=== PATIENT | female | born 1935 | race Caucasian/White ===

== ENCOUNTER 2017-04-07 17:55 | Inpatient (IN) | payer MEDICARE, OTHER, MEDICAID ==
[2017-04-07] MEDS: ONDANSETRON 4 MG INJ IV (18:29)
[2017-04-07] MEDS: morphine 4 MG/ML VIAL IV (18:29)
[2017-04-07] MEDS: SOD CHLORIDE 0.9% 1,000 ML IV ×3 (18:29→20:04)
[2017-04-07 18:58] LABS: ADD MAN DIFF? NO
[2017-04-07 18:59] LABS: BASOPHILS % 0.2 % (0.0-2.0); EOSINOPHILS # 0.1 10^3/ul (0.0-0.5); EOSINOPHILS % 0.5 % (0.0-7.0); HEMATOCRIT 37.8 % (37.0-47.0); HEMOGLOBIN 12.3 g/dl (12.0-16.0); LYMPHOCYTES % 7.7 % (15.0-51.0); MEAN CORPUSCULAR HEMOGLOBIN 29.5 pg (29.0-33.0); MEAN CORPUSCULAR HGB CONC 32.5 g/dl (32.0-37.0); MEAN CORPUSCULAR VOLUME 90.6 fl (82.0-101.0); MEAN PLATELET VOLUME 9.6 fl (7.4-10.4); MONOCYTE # 0.9 10^3/ul (0.3-0.9); MONOCYTES % 6.6 % (0.0-11.0); NEUTROPHIL # 11.5 10^3/ul (1.6-7.5); NEUTROPHILS % 84.7 % (39.0-77.0); PLATELET COUNT 248 10^3/UL (140-415); RED BLOOD COUNT 4.17 10^6/ul (4.20-5.40); RED CELL DISTRIBUTION WIDTH 12.4 % (11.5-14.5)
[2017-04-07 18:59] LABS: WHITE BLOOD COUNT 13.6 10^3/ul (4.8-10.8)
[2017-04-07 19:17] LABS: ALANINE AMINOTRANSFERASE 51 IU/L (13-69); ALBUMIN/GLOBULIN RATIO 1.37; ALKALINE PHOSPHATASE 97 IU/L (42-121); ANION GAP 17 (8-16); ASPARTATE AMINO TRANSFERASE 94 IU/L (15-46); BILIRUBIN,INDIRECT 1.1 mg/dl (0-1.1); BILIRUBIN,TOTAL 1.1 mg/dl (0.2-1.3); BLOOD UREA NITROGEN 37 mg/dl (7-20); CALCIUM 9.9 mg/dl (8.4-10.2); CARBON DIOXIDE 26 mmol/L (21-31); CHLORIDE 100 mmol/L (97-110); CREATININE 1.14 mg/dl (0.44-1.00); GLUCOSE 109 mg/dl (70-220); LIPASE 35 U/L (23-300); POTASSIUM 4.2 mmol/L (3.5-5.1); SODIUM 139 mmol/L (135-144); TOTAL PROTEIN 6.9 g/dl (6.1-8.1)
[2017-04-07 19:28] LABS: TROPONIN-I 0.053 ng/ml (0.00-0.12)
[2017-04-07 19:33] LABS: CREATINE KINASE 2350 IU/L (23-200)
[2017-04-07] MEDS: morphine 10 MG INJ IV (20:30)
[2017-04-07 20:50] LABS: URINE PH (Dip) POC 5.5 (5.0-8.5)
[2017-04-07 20:50] LABS: URINE BLOOD (Dip) POC Trace-lysed (NEGATIVE); URINE GLUCOSE (Dip) POC Negative (NEGATIVE); URINE KETONES (Dip) POC 2+ (NEGATIVE); URINE LEUKOCYTE EST (Dip) POC Negative (NEGATIVE); URINE NITRITE (Dip) POC Negative (NEGATIVE); URINE TOTAL PROTEIN POC Negative (NEGATIVE)
[2017-04-07 21:11] LABS: ADD UMIC NO; UR ASCORBIC ACID NEGATIVE (NEGATIVE); UR BILIRUBIN (Dip) NEGATIVE (NEGATIVE); UR BLOOD (Dip) NEGATIVE (NEGATIVE); UR CLARITY CLEAR (CLEAR); UR COLOR YELLOW (YELLOW); UR GLUCOSE (Dip) NEGATIVE (NEGATIVE); UR KETONES (Dip) 2+ mg/dL (NEGATIVE); UR LEUKOCYTE ESTERASE (Dip) NEGATIVE Leu/ul (NEGATIVE); UR NITRITE (Dip) NEGATIVE (NEGATIVE); UR SPECIFIC GRAVITY (Dip) 1.024 (1.003-1.030); UR TOTAL PROTEIN (Dip) NEGATIVE (NEGATIVE); UR UROBILINOGEN (Dip) NEGATIVE (NEGATIVE)
[2017-04-07] MEDS ORDERED: ACETAMINOPHEN 325 MG TAB PO (21:30)
[2017-04-07] MEDS ORDERED: ONDANSETRON 4 MG INJ IV (21:30)
[2017-04-07] MEDS: MAGNESIUM OXIDE 400 MG TAB PO (23:08)
[2017-04-08] MEDS ORDERED: NACL 0.9% 3 ML SYG IV (06:30)
[2017-04-08] MEDS ORDERED: morphine 2 MG INJ IV (06:30)
[2017-04-08] MEDS: PANTOPRAZOLE (EC) 40 MG TAB PO (07:01)
[2017-04-08] MEDS: SOD CHLORIDE 0.9% 1,000 ML IV ×3 (07:02→21:42)
[2017-04-08 07:42] LABS: ADD MAN DIFF? NO
[2017-04-08 08:00] LABS: BASOPHILS % 0.3 % (0.0-2.0); EOSINOPHILS # 0.2 10^3/ul (0.0-0.5); EOSINOPHILS % 1.6 % (0.0-7.0); HEMOGLOBIN 10.5 g/dl (12.0-16.0); LYMPHOCYTES # 1.3 10^3/ul (0.8-2.9); LYMPHOCYTES % 12.2 % (15.0-51.0); MEAN CORPUSCULAR HEMOGLOBIN 29.7 pg (29.0-33.0); MEAN CORPUSCULAR HGB CONC 31.8 g/dl (32.0-37.0); MEAN CORPUSCULAR VOLUME 93.2 fl (82.0-101.0); MEAN PLATELET VOLUME 9.6 fl (7.4-10.4); NEUTROPHIL # 7.8 10^3/ul (1.6-7.5); NEUTROPHILS % 75.5 % (39.0-77.0); PLATELET COUNT 195 10^3/UL (140-415); RED BLOOD COUNT 3.54 10^6/ul (4.20-5.40); RED CELL DISTRIBUTION WIDTH 12.6 % (11.5-14.5)
[2017-04-08 08:00] LABS: WHITE BLOOD COUNT 10.3 10^3/ul (4.8-10.8)
[2017-04-08 08:13] LABS: ALANINE AMINOTRANSFERASE 45 IU/L (13-69); ALBUMIN/GLOBULIN RATIO 1.11; ALKALINE PHOSPHATASE 60 IU/L (42-121); ANION GAP 13 (8-16); ASPARTATE AMINO TRANSFERASE 89 IU/L (15-46); BILIRUBIN,INDIRECT 0.9 mg/dl (0-1.1); BILIRUBIN,TOTAL 0.9 mg/dl (0.2-1.3); BLOOD UREA NITROGEN 29 mg/dl (7-20); CARBON DIOXIDE 23 mmol/L (21-31); CHLORIDE 109 mmol/L (97-110); GLUCOSE 93 mg/dl (70-220); MAGNESIUM 1.9 mg/dl (1.7-2.5); PHOSPHORUS 2.7 mg/dl (2.5-4.9); POTASSIUM 4.4 mmol/L (3.5-5.1); SODIUM 141 mmol/L (135-144); TOTAL PROTEIN 5.7 g/dl (6.1-8.1)
[2017-04-08 08:21] LABS: CREATINE KINASE 2213 IU/L (23-200)
[2017-04-08 08:24] LABS: TROPONIN-I 0.089 ng/ml (0.00-0.12)
[2017-04-08] MEDS: BUPROPION (XL) 150 MG TAB PO (08:34)
[2017-04-08] MEDS: LOSARTAN 50 MG TAB PO (08:35)
[2017-04-08] MEDS: FOLIC ACID 1 MG TAB PO (08:35)
[2017-04-08] MEDS: PAROXETINE 20 MG TAB PO (08:35)
[2017-04-08] MEDS: METOPROLOL 50 MG TAB PO (08:35)
[2017-04-08] MEDS: HYDROCODONE/APAP (5/325) TAB PO (08:36)
[2017-04-08 08:52] LABS: HEMOGLOBIN A1C 5.6 % (0-5.9)
[2017-04-08] MEDS: DULOXETINE 30 MG CAP DR PO (11:19)
[2017-04-08 12:29] LABS: TROPONIN-I 0.077 ng/ml (0.00-0.12)
[2017-04-08] MEDS ORDERED: EZETIMIBE 10 MG TAB PO (21:00)
[2017-04-08] MEDS ORDERED: ATORVASTATIN 80 MG TAB PO (21:00)
[2017-04-08] MEDS: AMITRIPTYLINE 10 MG TAB PO (21:37)
[2017-04-09] MEDS: hydrALAzine 20 MG INJ IV (03:18)
[2017-04-09] MEDS: HYDROCODONE/APAP (5/325) TAB PO ×3 (04:43→20:29)
[2017-04-09 05:24] LABS: ADD MAN DIFF? NO
[2017-04-09 05:28] LABS: BASOPHILS % 0.4 % (0.0-2.0); EOSINOPHILS # 0.3 10^3/ul (0.0-0.5); EOSINOPHILS % 2.8 % (0.0-7.0); HEMATOCRIT 34.6 % (37.0-47.0); HEMOGLOBIN 11.2 g/dl (12.0-16.0); LYMPHOCYTES # 1.8 10^3/ul (0.8-2.9); LYMPHOCYTES % 19.7 % (15.0-51.0); MEAN CORPUSCULAR HEMOGLOBIN 29.9 pg (29.0-33.0); MEAN CORPUSCULAR HGB CONC 32.4 g/dl (32.0-37.0); MEAN CORPUSCULAR VOLUME 92.3 fl (82.0-101.0); MEAN PLATELET VOLUME 9.6 fl (7.4-10.4); MONOCYTE # 0.8 10^3/ul (0.3-0.9); MONOCYTES % 8.7 % (0.0-11.0); NEUTROPHIL # 6.4 10^3/ul (1.6-7.5); PLATELET COUNT 193 10^3/UL (140-415); RED BLOOD COUNT 3.75 10^6/ul (4.20-5.40); RED CELL DISTRIBUTION WIDTH 12.7 % (11.5-14.5)
[2017-04-09 05:28] LABS: WHITE BLOOD COUNT 9.4 10^3/ul (4.8-10.8)
[2017-04-09 05:52] LABS: ANION GAP 11 (8-16); BLOOD UREA NITROGEN 20 mg/dl (7-20); CALCIUM 9.4 mg/dl (8.4-10.2); CARBON DIOXIDE 25 mmol/L (21-31); CHLORIDE 110 mmol/L (97-110); CREATININE 0.83 mg/dl (0.44-1.00); GLUCOSE 101 mg/dl (70-220); MAGNESIUM 1.7 mg/dl (1.7-2.5); PHOSPHORUS 1.8 mg/dl (2.5-4.9); SODIUM 142 mmol/L (135-144)
[2017-04-09 06:11] LABS: CREATINE KINASE 2402 IU/L (23-200)
[2017-04-09] MEDS: SOD CHLORIDE 0.9% 1,000 ML IV ×4 (06:20→18:18)
[2017-04-09] MEDS: PANTOPRAZOLE (EC) 40 MG TAB PO ×2 (07:20→09:45)
[2017-04-09] MEDS: METOPROLOL 50 MG TAB PO (09:42)
[2017-04-09] MEDS: FOLIC ACID 1 MG TAB PO (09:42)
[2017-04-09] MEDS: BUPROPION (XL) 150 MG TAB PO (09:42)
[2017-04-09] MEDS: DULOXETINE 30 MG CAP DR PO (09:42)
[2017-04-09] MEDS: LOSARTAN 50 MG TAB PO (09:43)
[2017-04-09] MEDS: ACETAMINOPHEN 325 MG TAB PO (09:43)
[2017-04-09 12:50] LABS: C-REACTIVE PROTEIN 2.9 mg/dl (0.0-0.9)
[2017-04-09 15:48] LABS: RHEUMATOID FACTOR NEGATIVE (NEGATIVE)
[2017-04-09] MEDS: SALMETEROL/FLUTICASONE 250/50 INHA INH ×2 (16:00→20:27)
[2017-04-09] MEDS: AMITRIPTYLINE 10 MG TAB PO (20:27)
[2017-04-09] MEDS: MONTELUKAST 10 MG TAB PO (20:29)
[2017-04-10] MEDS: SOD CHLORIDE 0.9% 1,000 ML IV ×3 (02:26→20:40)
[2017-04-10] MEDS: HYDROCODONE/APAP (5/325) TAB PO ×3 (05:08→20:37)
[2017-04-10] MEDS: PANTOPRAZOLE (EC) 40 MG TAB PO (05:08)
[2017-04-10 06:39] LABS: CREATINE KINASE 1162 IU/L (23-200)
[2017-04-10 06:42] LABS: ALANINE AMINOTRANSFERASE 47 IU/L (13-69); ALBUMIN 2.7 g/dl (3.3-4.9); ALBUMIN/GLOBULIN RATIO 1.35; ALKALINE PHOSPHATASE 52 IU/L (42-121); ANION GAP 8 (8-16); ASPARTATE AMINO TRANSFERASE 59 IU/L (15-46); BILIRUBIN,INDIRECT 0.4 mg/dl (0-1.1); BILIRUBIN,TOTAL 0.4 mg/dl (0.2-1.3); BLOOD UREA NITROGEN 19 mg/dl (7-20); CALCIUM 8.7 mg/dl (8.4-10.2); CARBON DIOXIDE 26 mmol/L (21-31); CHLORIDE 109 mmol/L (97-110); CREATININE 0.81 mg/dl (0.44-1.00); GLUCOSE 91 mg/dl (70-220); POTASSIUM 3.9 mmol/L (3.5-5.1); SODIUM 139 mmol/L (135-144); TOTAL PROTEIN 4.7 g/dl (6.1-8.1)
[2017-04-10] MEDS: FOLIC ACID 1 MG TAB PO (09:33)
[2017-04-10] MEDS: SALMETEROL/FLUTICASONE 250/50 INHA INH ×2 (09:33→20:36)
[2017-04-10] MEDS: DULOXETINE 30 MG CAP DR PO (09:33)
[2017-04-10] MEDS: LOSARTAN 50 MG TAB PO (09:34)
[2017-04-10] MEDS: BUPROPION (XL) 150 MG TAB PO (09:34)
[2017-04-10] MEDS: METOPROLOL 25 MG TAB PO ×3 (09:38→20:38)
[2017-04-10 12:27] LABS: HEPATITIS C VIRAL ANTIBODY NEGATIVE (NEGATIVE)
[2017-04-10] MEDS: hydrALAzine 20 MG INJ IV ×2 (13:39→22:17)
[2017-04-10] MEDS: ACETAMINOPHEN 325 MG TAB PO ×2 (16:43→23:57)
[2017-04-10] MEDS: MONTELUKAST 10 MG TAB PO (20:36)
[2017-04-10 21:54] LABS: RAPID PLASMA REAGIN NONREACTIVE (NR)
[2017-04-10] MEDS: ONDANSETRON 4 MG INJ IV (23:57)
[2017-04-11] MEDS: SOD CHLORIDE 0.9% 1,000 ML IV ×3 (01:00→17:01)
[2017-04-11] MEDS: HYDROCODONE/APAP (5/325) TAB PO ×2 (04:44→17:00)
[2017-04-11] MEDS: PANTOPRAZOLE (EC) 40 MG TAB PO (04:44)
[2017-04-11] MEDS: hydrALAzine 20 MG INJ IV (04:48)
[2017-04-11 05:04] LABS: ADD MAN DIFF? NO
[2017-04-11 05:14] LABS: BASOPHILS % 0.1 % (0.0-2.0); EOSINOPHILS # 0.1 10^3/ul (0.0-0.5); EOSINOPHILS % 0.8 % (0.0-7.0); HEMATOCRIT 32.3 % (37.0-47.0); HEMOGLOBIN 10.6 g/dl (12.0-16.0); LYMPHOCYTES # 0.6 10^3/ul (0.8-2.9); MEAN CORPUSCULAR HEMOGLOBIN 29.9 pg (29.0-33.0); MEAN CORPUSCULAR HGB CONC 32.8 g/dl (32.0-37.0); MEAN PLATELET VOLUME 9.6 fl (7.4-10.4); MONOCYTE # 0.4 10^3/ul (0.3-0.9); MONOCYTES % 5.2 % (0.0-11.0); NEUTROPHIL # 6.4 10^3/ul (1.6-7.5); NEUTROPHILS % 85.4 % (39.0-77.0); PLATELET COUNT 194 10^3/UL (140-415); RED BLOOD COUNT 3.55 10^6/ul (4.20-5.40); RED CELL DISTRIBUTION WIDTH 12.6 % (11.5-14.5)
[2017-04-11 05:14] LABS: WHITE BLOOD COUNT 7.5 10^3/ul (4.8-10.8)
[2017-04-11 05:49] LABS: CREATINE KINASE 795 IU/L (23-200)
[2017-04-11 05:49] LABS: PHOSPHORUS 3.3 mg/dl (2.5-4.9)
[2017-04-11 05:54] LABS: ALANINE AMINOTRANSFERASE 50 IU/L (13-69); ALBUMIN 3.2 g/dl (3.3-4.9); ALBUMIN/GLOBULIN RATIO 1.18; ALKALINE PHOSPHATASE 65 IU/L (42-121); ANION GAP 12 (8-16); ASPARTATE AMINO TRANSFERASE 56 IU/L (15-46); BILIRUBIN,INDIRECT 0.5 mg/dl (0-1.1); BILIRUBIN,TOTAL 0.5 mg/dl (0.2-1.3); BLOOD UREA NITROGEN 13 mg/dl (7-20); CALCIUM 9.4 mg/dl (8.4-10.2); CARBON DIOXIDE 28 mmol/L (21-31); CHLORIDE 103 mmol/L (97-110); CREATININE 0.79 mg/dl (0.44-1.00); GLUCOSE 116 mg/dl (70-220); POTASSIUM 4.1 mmol/L (3.5-5.1); SODIUM 139 mmol/L (135-144); TOTAL PROTEIN 5.9 g/dl (6.1-8.1)
[2017-04-11 06:43] LABS: HEPATITIS B SURFACE ANTIGEN NEGATIVE (NEGATIVE)
[2017-04-11] MEDS: ONDANSETRON 4 MG INJ IV (10:19)
[2017-04-11] MEDS: SALMETEROL/FLUTICASONE 250/50 INHA INH ×2 (10:19→22:23)
[2017-04-11] MEDS: ACETAMINOPHEN 325 MG TAB PO (10:19)
[2017-04-11] MEDS: METOPROLOL 25 MG TAB PO ×2 (10:20→22:24)
[2017-04-11] MEDS: DULOXETINE 30 MG CAP DR PO (10:20)
[2017-04-11] MEDS: FOLIC ACID 1 MG TAB PO (10:20)
[2017-04-11] MEDS: LOSARTAN 50 MG TAB PO (10:21)
[2017-04-11] MEDS: BUPROPION (XL) 150 MG TAB PO (10:23)
[2017-04-11] MEDS: ALBUTEROL/IPRATROPIUM (NEB) 3 ML AMP HHN (10:43)
[2017-04-11 13:51] LABS: ANA SCREEN NEGATIVE (NEGATIVE)
[2017-04-11] MEDS: MONTELUKAST 10 MG TAB PO (22:23)
[2017-04-12] MEDS: SOD CHLORIDE 0.9% 1,000 ML IV ×2 (03:40→06:32)
[2017-04-12] MEDS: BUPROPION (XL) 150 MG TAB PO (06:18)
[2017-04-12] MEDS: PANTOPRAZOLE (EC) 40 MG TAB PO (06:18)
[2017-04-12 06:54] LABS: CREATINE KINASE 376 IU/L (23-200)
[2017-04-12] MEDS: DULOXETINE 30 MG CAP DR PO (08:48)
[2017-04-12] MEDS: FOLIC ACID 1 MG TAB PO (08:49)
[2017-04-12] MEDS: METOPROLOL 25 MG TAB PO ×2 (08:49→21:51)
[2017-04-12] MEDS: LOSARTAN 50 MG TAB PO (08:49)
[2017-04-12] MEDS: SALMETEROL/FLUTICASONE 250/50 INHA INH ×2 (08:50→21:50)
[2017-04-12] MEDS: hydrALAzine 20 MG INJ IV ×2 (15:37→19:52)
[2017-04-12] MEDS: HYDROCODONE/APAP (5/325) TAB PO (19:40)
[2017-04-12] MEDS: MONTELUKAST 10 MG TAB PO (21:50)
[2017-04-12] MEDS: ONDANSETRON 4 MG INJ IV (21:54)
[2017-04-12] MEDS: DOXAZOSIN 2 MG TAB PO (21:56)
[2017-04-12] MEDS: LORAZEPAM 1 MG TAB PO (22:55)
[2017-04-13] MEDS: SOD CHLORIDE 0.9% 1,000 ML IV ×2 (06:49→19:39)
[2017-04-13] MEDS: DULOXETINE 30 MG CAP DR PO (09:58)
[2017-04-13] MEDS: BUPROPION (XL) 150 MG TAB PO (09:58)
[2017-04-13] MEDS: METOPROLOL 25 MG TAB PO ×2 (09:59→21:14)
[2017-04-13] MEDS: LOSARTAN 50 MG TAB PO (09:59)
[2017-04-13] MEDS: FOLIC ACID 1 MG TAB PO (09:59)
[2017-04-13] MEDS: PANTOPRAZOLE (EC) 40 MG TAB PO (09:59)
[2017-04-13] MEDS: SALMETEROL/FLUTICASONE 250/50 INHA INH ×2 (10:02→21:14)
[2017-04-13 14:26] LABS: ADD MAN DIFF? NO
[2017-04-13 14:40] LABS: ALANINE AMINOTRANSFERASE 50 IU/L (13-69); ALKALINE PHOSPHATASE 52 IU/L (42-121); AMYLASE 35 U/L (11-123); ANION GAP 11 (8-16); ASPARTATE AMINO TRANSFERASE 34 IU/L (15-46); BILIRUBIN,INDIRECT 0.3 mg/dl (0-1.1); BILIRUBIN,TOTAL 0.3 mg/dl (0.2-1.3); BLOOD UREA NITROGEN 16 mg/dl (7-20); CALCIUM 8.7 mg/dl (8.4-10.2); CARBON DIOXIDE 26 mmol/L (21-31); CHLORIDE 106 mmol/L (97-110); CREATINE KINASE 155 IU/L (23-200); CREATININE 1.02 mg/dl (0.44-1.00); GLUCOSE 119 mg/dl (70-220); LIPASE 34 U/L (23-300); POTASSIUM 3.8 mmol/L (3.5-5.1); SODIUM 139 mmol/L (135-144); TOTAL PROTEIN 5.3 g/dl (6.1-8.1)
[2017-04-13 14:42] LABS: BASOPHILS % 0.2 % (0.0-2.0); EOSINOPHILS # 0.1 10^3/ul (0.0-0.5); EOSINOPHILS % 1.8 % (0.0-7.0); HEMOGLOBIN 9.5 g/dl (12.0-16.0); LYMPHOCYTES # 0.9 10^3/ul (0.8-2.9); MEAN CORPUSCULAR HEMOGLOBIN 29.9 pg (29.0-33.0); MEAN CORPUSCULAR HGB CONC 32.8 g/dl (32.0-37.0); MEAN CORPUSCULAR VOLUME 91.2 fl (82.0-101.0); MEAN PLATELET VOLUME 9.5 fl (7.4-10.4); MONOCYTE # 0.7 10^3/ul (0.3-0.9); MONOCYTES % 11.8 % (0.0-11.0); NEUTROPHIL # 3.9 10^3/ul (1.6-7.5); NEUTROPHILS % 69.8 % (39.0-77.0); PLATELET COUNT 194 10^3/UL (140-415); RED BLOOD COUNT 3.18 10^6/ul (4.20-5.40)
[2017-04-13 14:42] LABS: WHITE BLOOD COUNT 5.5 10^3/ul (4.8-10.8)
[2017-04-13] MEDS: MONTELUKAST 10 MG TAB PO (21:13)
[2017-04-13] MEDS: DOXAZOSIN 4 MG TAB PO (21:13)
[2017-04-14] MEDS: HYDROCODONE/APAP (5/325) TAB PO (03:26)
[2017-04-14 06:13] LABS: CREATINE KINASE 139 IU/L (23-200)
[2017-04-14] MEDS: PANTOPRAZOLE (EC) 40 MG TAB PO (08:10)
[2017-04-14] MEDS: FOLIC ACID 1 MG TAB PO (08:11)
[2017-04-14] MEDS: DULOXETINE 30 MG CAP DR PO (08:11)
[2017-04-14] MEDS: LOSARTAN 50 MG TAB PO (08:11)
[2017-04-14] MEDS: BUPROPION (XL) 150 MG TAB PO (08:11)
[2017-04-14] MEDS: METOPROLOL 25 MG TAB PO ×2 (08:12→20:21)
[2017-04-14] MEDS: SALMETEROL/FLUTICASONE 250/50 INHA INH ×2 (08:13→20:22)
[2017-04-14] MEDS: SOD CHLORIDE 0.9% 1,000 ML IV ×2 (09:00→22:20)
[2017-04-14] MEDS: AMLODIPINE 2.5 MG TAB PO (15:10)
[2017-04-14] MEDS: MONTELUKAST 10 MG TAB PO (20:21)
[2017-04-14] MEDS: DOXAZOSIN 4 MG TAB PO (20:21)
[2017-04-14] MEDS: hydrALAzine 20 MG INJ IV (21:58)
[2017-04-14] MEDS: ACETAMINOPHEN 325 MG TAB PO (23:38)
[2017-04-15] MEDS: ONDANSETRON 4 MG INJ IV (01:05)
[2017-04-15] MEDS: HYDROCODONE/APAP (5/325) TAB PO ×2 (01:05→11:28)
[2017-04-15] MEDS: METOPROLOL 25 MG TAB PO (08:18)
[2017-04-15] MEDS: PANTOPRAZOLE (EC) 40 MG TAB PO (08:18)
[2017-04-15] MEDS: FOLIC ACID 1 MG TAB PO (08:18)
[2017-04-15] MEDS: BUPROPION (XL) 150 MG TAB PO (08:19)
[2017-04-15] MEDS: LOSARTAN 50 MG TAB PO (08:19)
[2017-04-15] MEDS: DULOXETINE 30 MG CAP DR PO (08:19)
[2017-04-15] MEDS: SALMETEROL/FLUTICASONE 250/50 INHA INH (08:20)
[2017-04-15] MEDS: ACETAMINOPHEN 325 MG TAB PO (08:24)
[2017-04-15] MEDS: AMLODIPINE 2.5 MG TAB PO (08:24)
[2017-04-15] MEDS: hydrALAzine 20 MG INJ IV (11:29)
[2017-04-15] MEDS: SOD CHLORIDE 0.9% 1,000 ML IV (11:40)
== END 2017-04-15 16:40 | DRG 558 ==
LOC: MS1 23:29 → E/R 17:55 → MS1 21:24
PROVIDERS: Internal Medicine
DX: M62.82 Rhabdomyolysis (principal); N17.9 Acute kidney failure, unspecified; E86.0 Dehydration; I11.0 Hypertensive heart disease with heart failure; I50.30 Unspecified diastolic (congestive) heart failure; T79.6XXA Traumatic ischemia of muscle, initial encounter; W19.XXXA Unspecified fall, initial encounter; R53.81 Other malaise; M62.50 Muscle wasting and atrophy, not elsewhere classified, unspecified site; I25.10 Atherosclerotic heart disease of native coronary artery without angina pectoris; G25.0 Essential tremor; F09 Unspecified mental disorder due to known physiological condition; F32.9 Major depressive disorder, single episode, unspecified; F41.9 Anxiety disorder, unspecified; M48.061 Spinal stenosis, lumbar region without neurogenic claudication; S82.832A Other fracture of upper and lower end of left fibula, initial encounter for closed fracture; S82.831A Other fracture of upper and lower end of right fibula, initial encounter for closed fracture
CPT/HCPCS: 36415; 70450; 70553; 71010; 72148; 72170; 73610-50; 80048; 80053; 81003; 82085; 82150; 82533; 82550; 82607; 83036; 83605; 83690; 83735; 84100; 84443; 84484; 85025; 85651; 86038; 86140; 86235; 86430; 86592; 86803; 87340; 93005; 93306; 93880; 94010; 94664; 96374; 96375; 96376; 97110; 97116; 97163; 97530; 99285-25

== ENCOUNTER 2017-12-31 12:50 | Emergency (ER) | payer MEDICARE, OTHER | END 2017-12-31 15:55 | disposition home or self-care (01) | LOC: FTE 12:50 | DX: S62.645A Nondisplaced fracture of proximal phalanx of left ring finger, initial encounter for closed fracture (principal); I25.10 Atherosclerotic heart disease of native coronary artery without angina pectoris; I10 Essential (primary) hypertension; F17.210 Nicotine dependence, cigarettes, uncomplicated; W10.9XXA Fall (on) (from) unspecified stairs and steps, initial encounter; Y92.9 Unspecified place or not applicable | CPT/HCPCS: 29130; 72100; 73030; 73130-LT; 73140; 99284-25 ==